=== PATIENT | female | born 1990 | race Caucasian/White ===

== ENCOUNTER 2016-06-16 10:47 | Emergency (ER) | payer BC ==
[~2016-06-16] VITALS: Ht 162.6 cm; Wt 108.9 kg
[2016-06-16 13:11] VITALS: BP 143/94
[2016-06-16] MEDS ORDERED: MECL25TA3 PO (13:59)
[2016-06-16] MEDS ORDERED: MECLIZINE HCL 12.5 MG TABLET. PO ONE (14:00)
--- NOTE | 2016-06-16 14:00 | PHYS DOC ---
Past Medical History Past Medical History: Anxiety, Asthma, Depression, Hypertension Past Surgical History: Tonsillectomy Alcohol Use: None Drug Use: None Adult General Chief Complaint Chief Complaint: DIZZY/LIGHT HEADED [facility] HPI Patient is a 25 year old female who presents for intermittent dizziness over the past few days. Starts random or with head movement. Starts intense and fatigues within minutes. Sometimes has nausea associated. She is currently asymptomatic. She has recent URI symptoms that are resolved. She denies headache, ear pain, tinnitus, vision changes, chest pain, dyspnea, abdominal pain, f/c, emesis, diarrhea, dysuria. Review of Systems Review of Systems Constitutional: Denies fever or chills [] Eyes: Denies change in visual acuity, redness, or eye pain [] HENT: Denies nasal congestion or sore throat [] Respiratory: Denies cough or shortness of breath [] Cardiovascular: No additional information not addressed in HPI [] GI: Denies abdominal pain, nausea, vomiting, bloody stools or diarrhea [] : Denies dysuria or hematuria [] Musculoskeletal: Denies back pain or joint pain [] Integument: Denies rash or skin lesions [] Neurologic: Denies headache, focal weakness or sensory changes [] Endocrine: Denies polyuria or polydipsia [] Current Medications Current Medications Current Medications Medications (Trade) Dose Ordered Sig/Ad Start Time Stop Time Status Last Admin Dose Admin Meclizine HCl (Antivert) 25 mg 1X ONCE 06/16/16 14:00 06/16/16 14:01 DC 06/16/16 14:00 25 MG Allergies Allergies Allergies Coded Allergies Type Severity Reaction Last Updated Verified No Known Drug Allergies 08/22/14 No Physical Exam Physical Exam Constitutional: Well developed, well nourished, no acute distress, non-toxic appearance. [] HENT: Normocephalic, atraumatic, bilateral TMs normal, oropharynx moist, no oral exudates, nose normal. [] Eyes: PERRLA, EOMI. [] Neck: Normal range of motion, supple. [] Cardiovascular:Heart rate regular rhythm [] Lungs & Thorax: Bilateral breath sounds clear to auscultation [] Abdomen: Bowel sounds normal, soft, no tenderness. [] Skin: Warm, dry, no erythema, no rash. [] Back: Normal ROM. [] Extremities: ROM intact, no edema. [] Neurologic: Alert and oriented X 3, normal motor function, normal sensory function, no focal deficits noted, cranial nerves II through XII intact, no nystagmus. [] Psychologic: Affect normal, judgement normal, mood normal. [] Current Patient Data Vital Signs Vital Signs Date Time Temp Pulse Resp B/P Pulse Ox O2 Delivery O2 Flow Rate FiO2 06/16/16 13:11 97.9 61 20 143/94 99 Room Air 97.9 Course & Med Decision Making Course & Med Decision Making Appears well on exam and currently without symptoms. Have concern for peripheral vertigo Will treat symptomatically. Return precautions given. She understands and agrees with plan. Dragon Disclaimer Dragon Disclaimer This electronic medical record was generated, in whole or in part, using a voice recognition dictation system. Departure Departure Impression: Primary Impression: Dizziness Disposition: 01 HOME, SELF-CARE Condition: STABLE Referrals: NO PCP (PCP) Patient Instructions: Vertigo, [id number] Additional Instructions: Take meclizine as needed for dizziness. Follow-up with your primary care doctor within one week. Return for any concerns. Scripts Meclizine Hcl 25 Mg Tablet1 Tab PO PRN TID PRN DIZZINESS #20 TAB Prov:Joe POMPA MD 06/16/16 Joe POMPA MD Jun 16, 2016 14:00
== END 2016-06-16 14:07 | disposition home or self-care (01) ==
LOC: ER 10:47
DX: R42 Dizziness and giddiness (principal); R53.83 Other fatigue; R11.0 Nausea; F41.9 Anxiety disorder, unspecified; J45.909 Unspecified asthma, uncomplicated; F32.9 Major depressive disorder, single episode, unspecified; I10 Essential (primary) hypertension
CPT/HCPCS: 99282; J8597

== ENCOUNTER 2017-03-02 20:49 | Emergency (ER) | payer SELFPAY ==
[~2017-03-02] VITALS: Ht 162.6 cm; Wt 95.3 kg
[~2017-03-02 20:49] MED LIST: MECL25TA3 PO
[2017-03-02 22:03] VITALS: BP 151/98
[2017-03-02] MEDS ORDERED: ACET-704 PO (22:43)
--- NOTE | 2017-03-02 22:44 | PHYS DOC ---
Past Medical History Past Medical History: Anxiety, Bronchitis, Depression, GERD, Hypertension, Migraines, UTI Past Surgical History: Tonsillectomy, Other Additional Past Surgical Histo: Tongue; Bartholon cyst Alcohol Use: None Drug Use: Marijuana Adult General Chief Complaint Chief Complaint: FINGER INJURY HPI HPI Patient is a 26 year old female who presents with left ring finger pain and right index finger pain that began yesterday while "messing around" with a brother. Patient states the pain is worse on range of motion. Patient denies any known injury. Patient describes the pain as throbbing and rates is as mild to moderate. Review of Systems Review of Systems Constitutional: Denies fever or chills [] Musculoskeletal: Left ring finger and right index finger pain Integument: Denies rash or skin lesions [] Neurologic: Denies headache, focal weakness or sensory changes [] All other systems were reviewed and found to be within normal limits, except as documented in this note. Allergies Allergies Allergies Coded Allergies Type Severity Reaction Last Updated Verified No Known Drug Allergies 08/22/14 No Physical Exam Physical Exam Constitutional: Well developed, well nourished, no acute distress, non-toxic appearance. [] Skin: Warm, dry, no erythema, no rash. [] Back: No tenderness, no CVA tenderness. [] Extremities: Left dorsal hand with mild soft tissue swelling and bruising around the MIP joint of the left ring finger. Tenderness on palpation to the area. Limited range of motion to the area especially flexion of the MIP joint. + 2 left radial pulse. Cap refill less than 2 seconds the left fingers. Adequate radial medial and ulnar sensation to the left hand. Old bruising noted on the dorsal aspect of the right hand. Patient able to flex and extend the left index finger at the MIP PIP and DIP joints with slight limitation noted on flexion at the PIP joint of the right index finger. +2 left radial pulse. Cap refill less than 2 seconds the right index finger. Adequate radial, medial and ulnar sensation to the right hand. +2 right radial pulse. Neurologic: Alert and oriented X 3, normal motor function, normal sensory function, no focal deficits noted. [] Psychologic: Affect normal, judgement normal, mood normal. [] Current Patient Data Vital Signs Vital Signs Date Time Temp Pulse Resp B/P (MAP) Pulse Ox O2 Delivery O2 Flow Rate FiO2 03/02/17 22:03 97.9 107 20 98 Room Air 97.9 EKG EKG [] Radiology/Procedures Radiology/Procedures [] Course & Med Decision Making Course & Med Decision Making Pertinent Labs and Imaging studies reviewed. (See chart for details) Patient is in the ED with injuries to the left ring finger and right index finger. X-rays of the left ring finger interpreted by Dr. Diaz were noted for fracture of the left ring finger proximal phalanx. X-ray of the right index finger interpreted by Dr. Diaz were negative for any acute findings. Patient was placed in the left ulnar gutter splint by the prepress technician, neurovascular exam done by me is normal, cap refill less than 2 seconds. Right index finger was also placed in a splint by the prepress technician, neurovascular exam is intact. Ice elevation encouraged. Provided orthopedic doctor for follow-up tomorrow. Dragon Disclaimer Dragon Disclaimer This electronic medical record was generated, in whole or in part, using a voice recognition dictation system. Departure Departure Impression: Primary Impression: Sprain of right index finger Additional Impression: Fracture of phalanx of left ring finger Disposition: 01 HOME, SELF-CARE Condition: STABLE Referrals: NO PCP (PCP) [place] MD Call his office tomorrow for follow up appointment Patient Instructions: Finger Fracture (Phalangeal)-SportsMed, Finger Sprain, [id number] Additional Instructions: You were seen for left ring finger fracture and right index finger sprain. Please contact the provided orthopedic doctor first thing tomorrow morning and set up a follow-up appointment. Ice and elevate the affected extremities. Scripts Acetaminophen With Codeine (TYLENOL WITH CODEINE #3 TABLET) 1 Each Tablet 1 TAB PO PRN Q6HRS Y for PAIN, #30 TAB Prov: KOMAL LESTER RAILROAD OPERATOR 03/02/17 Problem Qualifiers Primary Impression: Sprain of right index finger Encounter type: initial encounter Sprain of finger site: interphalangeal joint Qualified Codes: S63.630A - Sprain of interphalangeal joint of right index finger, initial encounter Additional Impression: Fracture of phalanx of left ring finger Encounter type: initial encounter Fracture type: closed Phalanx: proximal Fracture alignment: displaced Qualified Codes: S62.615A - Displaced fracture of proximal phalanx of left ring finger, initial encounter for closed fracture KOMAL LESTER RAILROAD OPERATOR Mar 02, 2017 22:44
--- NOTE | 2017-03-03 08:04 | RAD ---
Left ring finger, 3 views, 03/02/2017: History: Injury There is an oblique fracture of the proximal shaft of the proximal phalanx of the ring finger. There is mild volar displacement of the major distal fracture fragment without significant angulation. No other fracture or dislocation is identified. IMPRESSION: Slightly displaced fracture of the proximal phalanx of the left ring finger. Right index finger, 3 views, 03/02/2017: History: Injury There is mild soft tissue swelling about the proximal aspect of the finger. No fracture or dislocation is identified. IMPRESSION: No acute bony abnormality is detected.
== END 2017-03-02 22:50 | disposition home or self-care (01) ==
LOC: ER 20:49
DX: S62.615A Displaced fracture of proximal phalanx of left ring finger, initial encounter for closed fracture (principal); S63.630A Sprain of interphalangeal joint of right index finger, initial encounter; K21.9 Gastro-esophageal reflux disease without esophagitis; I10 Essential (primary) hypertension; F41.9 Anxiety disorder, unspecified; G43.909 Migraine, unspecified, not intractable, without status migrainosus; F12.10 Cannabis abuse, uncomplicated; Z87.440 Personal history of urinary (tract) infections; X58.XXXA Exposure to other specified factors, initial encounter; Y93.89 Activity, other specified; Y92.89 Other specified places as the place of occurrence of the external cause; Y99.8 Other external cause status
CPT/HCPCS: 29125; 73140; 99284-25